=== PATIENT | male | born 1950 | race Caucasian/White ===

== ENCOUNTER → 2016-04-30 | Day surgery (SDC) | payer MEDICARE, BC ==
[~2016-04-30] MED LIST: Lactated Ringers 1,000 ML IV SCH; Propofol 200 MG/20 ML SDV IV ONE
[2016-04-30 11:30] VITALS: BP 118/82
--- NOTE | 2016-04-30 12:52 | OR ---
DATE OF OPERATION: 04/30/2016 PREOPERATIVE DIAGNOSIS: ALTERED BOWEL HABITS AND WEIGHT LOSS. POSTOPERATIVE DIAGNOSIS: ALTERED BOWEL HABITS AND WEIGHT LOSS. SURGEON: Franklin Tello MD PROCEDURE: FULL-LENGTH COLONOSCOPY. 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 COMPLICATIONS: None. SPECIMEN: None. FINDINGS: 1. Full-length colonoscopy. 2. Moderate distal sigmoid diverticulosis. RECOMMENDATIONS: Routine medical followup. INDICATIONS: The patient has been having altered bowel habits, formed or loose stools. He has been having some very mild weight loss, so we elected to proceed with colonoscopy. He has not had one in almost 10 years. DESCRIPTION OF PROCEDURE: The patient was prepped and draped, placed in the left lateral decubitus position. A lubricated Olympus colonoscope was inserted and with relative ease advanced all the way to the cecum. We were able to directly visualize the ileocecal valve and appendiceal orifice. The bowel prep was adequate. Upon withdrawal, the cecum, ascending, and transverse colon were completely benign. No signs of any lesions in the left colon including polyps, mass, ulceration, or bleeding sites. No vascular abnormalities or signs of colitis. The patient does have scattered diverticula throughout the mid sigmoid and the rectosigmoid junction, moderate in severity. No acute inflammatory changes were seen. The rectal vault appeared benign. It is very shallow rectum, I could not retroflex in it, but upon withdrawal of the scope upon direct visualization no lesions were seen. Air was suctioned as best as possible. The scope was removed without complication. MARLENY/TYRA /[id number]
== END ==
LOC: CC.SDS 09:39
PROVIDERS: ATTEND Family Medicine
DX: K57.30 Diverticulosis of large intestine without perforation or abscess without bleeding (principal); N40.0 Benign prostatic hyperplasia without lower urinary tract symptoms; I10 Essential (primary) hypertension; Z88.8 Allergy status to other drugs, medicaments and biological substances; Z79.82 Long term (current) use of aspirin; Z79.899 Other long term (current) drug therapy; Z98.890 Other specified postprocedural states; Z72.0 Tobacco use
CPT/HCPCS: 45378; J2704; J7120; 00810

== ENCOUNTER 2016-05-01 00:45 | Observation (INO) | payer MEDICARE, BC ==
[2016-05-01] MEDS ORDERED: Acetaminophen 500 MG Tab PO ONE (01:10)
--- NOTE | 2016-05-01 02:01 | EDM.PDOC ---
ED HPI GENERAL MEDICAL PROBLEM - General Chief Complaint: General Stated Complaint: abdominal pain Time Seen by Provider: 05/01/16 01:10 Source of Information: Reports: Patient History Limitations: Reports: No limitations - History of Present Illness INITIAL COMMENTS - FREE TEXT/NARRATIVE: History and physical: History of present illness: [Patient comes to the emergency room complaining of abdominal pain. he had a colonoscopy around 10:30 this morning at [facility], performed by Dr. Tello. States that the procedure well well, without complications, diverticulitis was noted on exam. Patient felt well this afternoon and gradually advanced his diet. Around 8:30 PM he had some toast and cheese. Had increased belching and flatulence at home. No bowel movements today. At 10:30 his upper abdomen began to ache which he initially rated as 8/10. Describes the pain as an aching sensation without radiation to his mid back, which is constant. he does have some low back discomfort. Has had some increased urinary urgency over the past several days. No blood in his urine or burning with urination. Overall he feels poorly. Developed a fever while in the emergency room, up to 103. Medical history includes celiac disease, diverticulitis, right shoulder separation, hypertension, prostate enlargement. Review of Systems: As per history of present illness and below otherwise all systems reviewed and negative. Past medical history: As per history of present illness and as reviewed below otherwise noncontributory. Surgical history: As per history of present illness and is reviewed below other [place] noncontributory. Social history: No reported history of drug or alcohol abuse. Family history: As per history of present illness and is reviewed below otherwise noncontributory. Physical exam: General: Well-developed well-nourished male in no acute distress. Appears mildly diaphoretic. HEENT: Atraumatic, normocephalic. Oral mucous membranes are pink and moist the tonsillar swelling erythema or exudate. neck supple, nontender, trachea midline. Lungs: Clear to auscultation, breath sounds equal bilaterally. Heart: Grade 3/5 systolic murmur, heard best over mitral valve area. S1-S2, regular rate and rhythm. No JVD. Abdomen: Increased belching. Bowel sounds are normoactive throughout. Soft, nondistended. Mildly tender with palpation over epigastrium. Otherwise nontender. No masses guarding or rebound. Negative for costovertebral tenderness. Pelvis: Stable, nontender. Genitourinary: Deferred. Rectal: Deferred. Extremities: atraumatic, negative for cords or calf pain. No cyanosis or edema. Neurovascular unremarkable. Neuro: Awake, alert, oriented. Cranial nerves II through XII unremarkable. Motor and sensory unremarkable throughout. Exam nonfocal. Diagnostics: [CT abd and pelvis, CBC, CMP, lactic acid, CRP, UA, amylase, blood cultures] Therapeutics: [ibuprofen 800mg po, Tylenol 1 gram po] Impression: [abdominal pain fever elevated LFT's] Plan: [Discussed results of CT and labs with patient. He is in agreement w/ admission for observation and continued monitoring of fever and epigastric pain. Will repeat labs this afternoon. patient is in agreement with today's plan. All questions are answered and concerns are addressed. This note should be used for observation H&P. ] Definitive disposition and diagnosis is appropriate pending reevaluation and review of above. Abdominal Pain Score (Numeric/FACES): 6 - Related Data Allergies Allergy/AdvReac Type Severity Reaction Status Date / Time simvastatin Allergy Cannot Verified 05/01/16 00:51 Remember Home Meds: Home Meds Aspirin [Ecotrin] 81 mg PO DAILY 04/28/16 [History] Fish Oil/[place]-3 Fatty Acids [Fish Oil 1,000 MG] 2,000 mg PO DAILY 04/28/16 [ History] Ibuprofen 200 mg PO Q4H PRN 04/28/16 [History] Naproxen Sodium [Aleve] 220 mg PO QID PRN 04/28/16 [History] Tamsulosin HCl [Flomax] 0.4 mg PO BEDTIME PRN 04/28/16 [History] Lisinopril 20 mg PO DAILY 05/01/16 [History] Past Medical History Musculoskeletal History: Reports: Other (see below) Other Musculoskeletal History: NECK SURGERY - Past Surgical History Musculoskeletal Surgical History: Reports: Other (see below) Other Musculoskeletal Surgeries/Procedures:: AC SEPERATION Social & Family History - Family History Family Medical History: Noncontributory - Tobacco Use Smoking Status *Q: Never Smoker Second Hand Smoke Exposure: No ED ROS GENERAL - Review of Systems Review Of Systems: ROS reveals no pertinent complaints other than HPI. ED EXAM, GENERAL - Physical Exam Exam: See Below Course - Vital Signs Last Recorded V/S: Last Vital Signs Temp 97.5 F 05/01/16 16:00 Pulse 54 L 05/01/16 16:00 Resp 2 L 05/01/16 16:00 BP 119/55 L 05/01/16 16:00 Pulse Ox 98 05/01/16 16:00 - Orders/Labs/Meds Orders: Active Orders 24 hr Category Date Time Status Patient Status [ADT] Routine ADT 05/01/16 03:17 Active Bedrest Bathroom Privileges [RC] .PRN Care 05/01/16 03:17 Active Height and Weight [RC] .PRN Care 05/01/16 03:17 Active Oxygen Therapy [RC] .PRN Care 05/01/16 03:17 Active Vital Signs [RC] 0000,0400,0800,1200,1600,2000 Care 05/01/16 03:17 Active Clear Liquid Diet [DIET] Diet 05/01/16 Breakfast Active Abdomen Pelvis w Cont [CT] Stat Exams 05/01/16 01:25 Taken CULTURE BLOOD [BC] Stat Lab 05/01/16 01:26 Ordered CULTURE BLOOD [BC] Stat Lab 05/01/16 01:26 Ordered HEPATITIS PANEL, ACUTE [REF] Stat Lab 05/01/16 14:30 Received Enoxaparin [Lovenox] Med 05/01/16 03:30 Active 30 mg SUBCUT Q24H Ibuprofen [Motrin] Med 05/01/16 03:17 Active 600 mg PO Q6H PRN Lisinopril [Prinivil] Med 05/01/16 08:00 Active 20 mg PO DAILY Ondansetron [Zofran] Med 05/01/16 03:17 Active 4 mg IV Q4H PRN Sodium Chloride 0.9% [Normal Saline] 1,000 ml Med 05/01/16 03:30 Active IV ASDIRECTED Tamsulosin [Flomax] Med 05/01/16 03:32 Active 0.4 mg PO BEDTIME PRN Resuscitation Status Routine Resus Stat 05/01/16 03:17 Ordered Medication Orders Ceftriaxone Sodium (Rocephin) 1 gm IVPUSH Q24H [facility] Last Admin: 05/01/16 03:54 Dose: 1 gm Enoxaparin Sodium (Lovenox) 30 mg SUBCUT Q24H [facility] Last Admin: 05/01/16 03:47 Dose: 30 mg Sodium Chloride (Normal Saline) 1,000 mls @ 100 mls/hr IV ASDIRECTED [facility] Last Admin: 05/01/16 13:27 Dose: 100 mls/hr Infusion: 05/01/16 13:27 Dose: 100 mls/hr Admin: 05/01/16 03:46 Dose: 100 mls/hr Ibuprofen (Motrin) 600 mg PO Q6H PRN PRN Reason: Fever Lisinopril (Prinivil) 20 mg PO DAILY [facility] Last Admin: 05/01/16 15:41 Dose: Ondansetron HCl (Zofran) 4 mg IV Q4H PRN PRN Reason: Nausea/Vomiting Tamsulosin HCl (Flomax) 0.4 mg PO BEDTIME PRN PRN Reason: bladder Labs: Laboratory Tests 05/01/16 05/01/16 05/01/16 Range/Units 01:50 01:50 01:50 WBC 11.3 H (5.0-10.0) 10^3/uL RBC 4.19 L (4.50-6.00) 10^6/uL Hgb 12.9 L (14.0-18.0) g/dL Hct 38.9 L (40.0-54.0) % MCV 92.8 (82.0-94.0) fL MCH 30.8 (27.0-32.0) pg MCHC 33.2 (33.0-38.0) g/dL RDW Coeff of Ambrosio 12.7 (11.0-15.0) % Plt Count 185 (150-400) 10^3/uL Add Manual Diff Yes Neutrophils % (Manual) 80 (35-85) % Band Neutrophils % 10 H (0-5) % Lymphocytes % (Manual) 6 L (21-55) % Monocytes % (Manual) 4 (2-12) % Absolute Neutrophils 10.17 H (1.80-7.00) 10^3/uL Lymphocytes # (Manual) 0.68 L (1.00-4.80) 10^3/uL Monocytes # (Manual) 0.45 (0.00-0.80) 10^3/uL Sodium 142 (136-145) mEq/L Potassium 4.6 (3.5-5.0) mEq/L Chloride 106 (98-106) mEq/L Carbon Dioxide 27 (21-32) mmol/L BUN 16 (7-18) mg/dL Creatinine 0.9 (0.7-1.3) mg/dL Est Cr Clr Drug Dosing TNP Estimated GFR (MDRD) > 60 (>=60) mL/min Glucose 108 H (75-99) mg/dL Lactic Acid (0.4-2.0) mmol/L Calcium 8.3 L (8.4-10.1) mg/dL Total Bilirubin 0.7 (0.0-1.0) mg/dL AST 472 H* (15-37) U/L ALT 294 H (12-78) U/L Alkaline Phosphatase 60 (46-116) U/L C-Reactive Protein 0.2 (0.2-0.8) mg/dL Total Protein 7.0 (6.4-8.2) g/dL Albumin 3.4 (3.4-5.0) g/dL Amylase 34 (25-115) U/L Urine Color Yellow (YELLOW) Urine Appearance Clear (CLEAR) Urine pH 5.5 (4.5-8.0) Ur Specific [place] 1.031 H (1.003-1.020) Urine Protein Negative (NEGATIVE) mg/dL Urine Glucose (UA) Negative (NEGATIVE) mg/dL Urine Ketones Negative (NEGATIVE) mg/dL Urine Occult Blood Negative (NEGATIVE) Urine Nitrite Negative (NEGATIVE) Urine Bilirubin Negative (NEGATIVE) Urine Urobilinogen 0.2 (0.2-1.0) EU/dL Ur Leukocyte Esterase Negative (NEGATIVE) Urine RBC 0-5 (0-5) /HPF Urine WBC 0-5 (0-5) /HPF // Range/Units 02:10 WBC (5.0-10.0) 10^3/uL RBC (4.50-6.00) 10^6/uL Hgb (14.0-18.0) g/dL Hct (40.0-54.0) % MCV (82.0-94.0) fL MCH (27.0-32.0) pg MCHC (33.0-38.0) g/dL RDW Coeff of Ambrosio (11.0-15.0) % Plt Count (150-400) 10^3/uL Add Manual Diff Neutrophils % (Manual) (35-85) % Band Neutrophils % (0-5) % Lymphocytes % (Manual) (21-55) % Monocytes % (Manual) (2-12) % Absolute Neutrophils (1.80-7.00) 10^3/uL Lymphocytes # (Manual) (1.00-4.80) 10^3/uL Monocytes # (Manual) (0.00-0.80) 10^3/uL Sodium (136-145) mEq/L Potassium (3.5-5.0) mEq/L Chloride (98-106) mEq/L Carbon Dioxide (21-32) mmol/L BUN (7-18) mg/dL Creatinine (0.7-1.3) mg/dL Est Cr Clr Drug Dosing Estimated GFR (MDRD) (>=60) mL/min Glucose (75-99) mg/dL Lactic Acid 3.2 H (0.4-2.0) mmol/L Calcium (8.4-10.1) mg/dL Total Bilirubin (0.0-1.0) mg/dL AST (15-37) U/L ALT (12-78) U/L Alkaline Phosphatase (46-116) U/L C-Reactive Protein (0.2-0.8) mg/dL Total Protein (6.4-8.2) g/dL Albumin (3.4-5.0) g/dL Amylase (25-115) U/L Urine Color (YELLOW) Urine Appearance (CLEAR) Urine pH (4.5-8.0) Ur Specific [place] (1.003-1.020) Urine Protein (NEGATIVE) mg/dL Urine Glucose (UA) (NEGATIVE) mg/dL Urine Ketones (NEGATIVE) mg/dL Urine Occult Blood (NEGATIVE) Urine Nitrite (NEGATIVE) Urine Bilirubin (NEGATIVE) Urine Urobilinogen (0.2-1.0) EU/dL Ur Leukocyte Esterase (NEGATIVE) Urine RBC (0-5) /HPF Urine WBC (0-5) /HPF Meds: Medications Generic Name Dose Route Start Last Admin Trade Name Freq PRN Reason Stop Dose Admin Ceftriaxone Sodium 1 gm 05/01/16 04:00 05/01/16 03:54 Rocephin IVPUSH 1 gm Q24H [facility] Administration Enoxaparin Sodium 30 mg 05/01/16 03:30 05/01/16 03:47 Lovenox SUBCUT 30 mg Q24H [facility] Administration Sodium Chloride 1,000 mls @ 100 mls/hr 05/01/16 03:30 05/01/16 13:27 Normal Saline IV 100 mls/hr ASDIRECTED [facility] Administration Ibuprofen 600 mg 05/01/16 03:17 Motrin PO Q6H PRN Fever Lisinopril 20 mg 05/01/16 08:00 05/01/16 15:41 Prinivil PO Not Given DAILY [facility] Ondansetron HCl 4 mg 05/01/16 03:17 Zofran IV Q4H PRN Nausea/Vomiting Tamsulosin HCl 0.4 mg 05/01/16 03:32 Flomax PO BEDTIME PRN bladder Discontinued Medications Generic Name Dose Route Start Last Admin Trade Name Freq PRN Reason Stop Dose Admin Acetaminophen 1,000 mg 05/01/16 01:10 05/01/16 01:58 Tylenol Extra Strength PO 05/01/16 01:11 1,000 mg ONETIME ONE Administration Ibuprofen 800 mg 05/01/16 02:29 05/01/16 02:34 Motrin PO 05/01/16 02:30 800 mg ONETIME ONE Administration Departure - Departure Time of Disposition: 03:30 Disposition: DC/Tfer W/I Hosp To Swing 61 Condition: fair Clinical Impression: Epigastric abdominal pain, Elevated LFTs Fever Qualifiers: Fever type: unspecified Qualified Code(s): R50.9 - Fever, unspecified - My Orders Last 24 Hours: My Active Orders 05/01/16 01:25 Abdomen Pelvis w Cont [CT] Stat 05/01/16 01:26 CULTURE BLOOD [BC] Stat CULTURE BLOOD [BC] Stat 05/01/16 03:17 Patient Status [ADT] Routine Bedrest Bathroom Privileges [RC] .PRN Height and Weight [RC] .PRN Oxygen Therapy [RC] .PRN Vital Signs [RC] 0000,0400,0800,1200,1600,2000 Ibuprofen [Motrin] 600 mg PO Q6H PRN Ondansetron [Zofran] 4 mg IV Q4H PRN Resuscitation Status Routine 05/01/16 03:30 Enoxaparin [Lovenox] 30 mg SUBCUT Q24H Sodium Chloride 0.9% [Normal Saline] 1,000 ml IV ASDIRECTED 05/01/16 03:32 Tamsulosin [Flomax] 0.4 mg PO BEDTIME PRN 05/01/16 08:00 Lisinopril [Prinivil] 20 mg PO DAILY 05/01/16 14:30 HEPATITIS PANEL, ACUTE [REF] Stat 05/01/16 Breakfast Clear Liquid Diet [DIET] - Assessment/Plan Last 24 Hours: My Active Orders 05/01/16 01:25 Abdomen Pelvis w Cont [CT] Stat 05/01/16 01:26 CULTURE BLOOD [BC] Stat CULTURE BLOOD [BC] Stat 05/01/16 03:17 Patient Status [ADT] Routine Bedrest Bathroom Privileges [RC] .PRN Height and Weight [RC] .PRN Oxygen Therapy [RC] .PRN Vital Signs [RC] 0000,0400,0800,1200,1600,2000 Ibuprofen [Motrin] 600 mg PO Q6H PRN Ondansetron [Zofran] 4 mg IV Q4H PRN Resuscitation Status Routine 05/01/16 03:30 Enoxaparin [Lovenox] 30 mg SUBCUT Q24H Sodium Chloride 0.9% [Normal Saline] 1,000 ml IV ASDIRECTED 05/01/16 03:32 Tamsulosin [Flomax] 0.4 mg PO BEDTIME PRN 05/01/16 08:00 Lisinopril [Prinivil] 20 mg PO DAILY 05/01/16 14:30 HEPATITIS PANEL, ACUTE [REF] Stat 05/01/16 Breakfast Clear Liquid Diet [DIET]
[2016-05-01] MEDS ORDERED: Ibuprofen 200 MG Tab PO ONE (02:29)
[2016-05-01 02:40] LABS: CHLORIDE,CL 106 mEq/L (98-106); SODIUM,NA 142 mEq/L (136-145)
[2016-05-01] MEDS ORDERED: Ondansetron 4 MG/2 ML SDV IV PRN (03:17)
[2016-05-01] MEDS ORDERED: Ibuprofen 200 MG Tab PO PRN (03:17)
[2016-05-01] MEDS ORDERED: Tamsulosin 0.4 MG Cap.ER PO PRN (03:32)
[2016-05-01] MEDS: Sodium Chloride 0.9% 1,000 ML IV SCH ×2 (03:46→13:27)
[2016-05-01] MEDS: Enoxaparin 30 MG/0.3 ML Syringe SUBCUT SCH (03:47)
[2016-05-01] MEDS: cefTRIAXone 1 GM Vial IVPUSH SCH (03:54)
[2016-05-01 14:51] LABS: CHLORIDE,CL 109 mEq/L (98-106); SODIUM,NA 143 mEq/L (136-145)
[2016-05-01] MEDS: Lisinopril 20 MG Tab PO SCH (15:41)
--- NOTE | 2016-05-01 22:38 | PCM.PN ---
- General Info Date of Service: 05/01/16 Admission Dx/Problem (Free Text): Patient was reevaluated around 4 PM today. He has remained pain-free since he presented to the emergency room. Liver enzymes remain elevated and ALT has actually increased. He has no complaints of pain or nausea. Will advance to regular diet (gluten free) for supper and see how he does. Will recheck labs in the a.m. If stable, will consider discharge to home. Pt is in agreement w/ plan. - Patient Data Vitals - most recent: Last Vital Signs Temp 98.5 F 05/01/16 20:00 Pulse 52 L 05/01/16 20:00 Resp 16 05/01/16 20:00 BP 103/58 L 05/01/16 20:00 Pulse Ox 96 05/01/16 20:00 Weight - most recent: 134 lb 11.2 oz I&O - last 24 hours: Intake & Output 05/01/16 05/01/16 05/01/16 06:59 14:59 22:59 Intake Total 968 Balance 968 Lab Results last 24 hrs: Laboratory Results - last 24 hr 05/01/16 05/01/16 05/01/16 Range/Units 14:20 14:30 14:30 WBC 6.5 (5.0-10.0) 10^3/uL RBC 3.70 L (4.50-6.00) 10^6/uL Hgb 11.4 L (14.0-18.0) g/dL Hct 34.7 L (40.0-54.0) % MCV 93.8 (82.0-94.0) fL MCH 30.8 (27.0-32.0) pg MCHC 32.9 L (33.0-38.0) g/dL RDW Coeff of Ambrosio 12.7 (11.0-15.0) % Plt Count 169 (150-400) 10^3/uL Neut % (Auto) 70.9 (35-85) % Lymph % (Auto) 11.8 (10-55) % [place] % (Auto) 14.3 (0-16) % Eos % (Auto) 2.8 (0-5) % Baso % (Auto) 0.2 (0-3) % Neut # (Auto) 4.58 (1.80-7.00) 10^3/uL Lymph # (Auto) 0.76 L (1.00-4.80) 10^3/uL [place] # (Auto) 0.92 H (0.00-0.80) 10^3/uL Eos # (Auto) 0.18 (0.00-0.45) 10^3/uL Baso # (Auto) 0.01 10^3/uL Sodium 143 (136-145) mEq/L Potassium 3.9 (3.5-5.0) mEq/L Chloride 109 H (98-106) mEq/L Carbon Dioxide 27 (21-32) mmol/L BUN 14 (7-18) mg/dL Creatinine 0.8 (0.7-1.3) mg/dL Est Cr Clr Drug Dosing 77.43 mL/min Estimated GFR (MDRD) > 60 (>=60) mL/min Glucose 85 (75-99) mg/dL Lactic Acid 0.9 (0.4-2.0) mmol/L Calcium 7.4 L (8.4-10.1) mg/dL Total Bilirubin 0.5 (0.0-1.0) mg/dL AST 238 H (15-37) U/L ALT 394 H* (12-78) U/L Alkaline Phosphatase 46 (46-116) U/L C-Reactive Protein 3.2 H (0.2-0.8) mg/dL Total Protein 5.7 L (6.4-8.2) g/dL Albumin 2.7 L (3.4-5.0) g/dL Med Orders - Current: Current Medications Ceftriaxone Sodium (Rocephin) 1 gm IVPUSH Q[facility]H [facility] Last Admin: 05/01/16 03:54 Dose: 1 gm Enoxaparin Sodium (Lovenox) 30 mg SUBCUT Q24H [facility] Last Admin: 05/01/16 03:47 Dose: 30 mg Sodium Chloride (Normal Saline) 1,000 mls @ 100 mls/hr IV ASDIRECTED [facility] Last Admin: 05/01/16 13:27 Dose: 100 mls/hr Ibuprofen (Motrin) 600 mg PO Q6H PRN PRN Reason: Fever Lisinopril (Prinivil) 20 mg PO DAILY [facility] Last Admin: 05/01/16 15:41 Dose: Not Given Ondansetron HCl (Zofran) 4 mg IV Q4H PRN PRN Reason: Nausea/Vomiting Tamsulosin HCl (Flomax) 0.4 mg PO BEDTIME PRN PRN Reason: bladder Discontinued Medications Acetaminophen (Tylenol Extra Strength) 1,000 mg PO ONETIME ONE Stop: 05/01/16 01:11 Last Admin: 05/01/16 01:58 Dose: 1,000 mg Ibuprofen (Motrin) 800 mg PO ONETIME ONE Stop: 05/01/16 02:30 Last Admin: 05/01/16 02:34 Dose: 800 mg - Problem List Review Problem List Initiated/Reviewed/Updated: Yes - My Orders Last 24 Hours: My Active Orders 05/01/16 04:00 cefTRIAXone [Rocephin] 1 gm IVPUSH Q24H 05/01/16 Dinner Regular Diet [DIET]
[2016-05-02] MEDS: Enoxaparin 30 MG/0.3 ML Syringe SUBCUT SCH (03:49)
[2016-05-02] MEDS: cefTRIAXone 1 GM Vial IVPUSH SCH (03:50)
[2016-05-02] MEDS: Sodium Chloride 0.9% 1,000 ML IV SCH (03:51)
[2016-05-02 07:56] LABS: CHLORIDE,CL 110 mEq/L (98-106); SODIUM,NA 144 mEq/L (136-145)
[2016-05-02] MEDS: Lisinopril 20 MG Tab PO SCH (09:09)
[2016-05-02 11:58] VITALS: BP 122/61
--- NOTE | 2016-05-02 13:55 | PCM.DCSUM1 ---
Discharge Summary - Hospital Course Free Text/Narrative:: Patient was admitted through the ER during the speech therapist early intervention hours of May 01 epigastric abdominal pain, fever, elevated liver enzymes. His abd pain and fever have resolved entirely, and he is tolerating regular diet. Is ambulating without difficulty. Had a normal bowel movement this morning. Is urinating without difficulty. - Discharge Data Discharge Date: 05/02/16 Discharge Disposition: Home, Self-Care 01 Condition: Good - Discharge Diagnosis/Problem(s) (1) Elevated LFTs SNOMED Code(s): 488946019 ICD Code: R94.5 - ABNORMAL RESULTS OF LIVER FUNCTION STUDIES Status: Acute Current Visit: Yes (2) Epigastric abdominal pain SNOMED Code(s): 64092095 ICD Code: R10.13 - EPIGASTRIC PAIN Status: Resolved Current Visit: Yes (3) Fever SNOMED Code(s): 408602119 ICD Code: R50.9 - FEVER, UNSPECIFIED Status: Resolved Current Visit: Yes Qualifiers: Fever type: unspecified Qualified Code(s): R50.9 - Fever, unspecified - Patient Summary/Data Recommended Follow-up Testing/Procedures: Follow up with Dr. Tello at [facility] tomorrow a.m. - Patient Instructions Diet: Regular Diet as Tolerated Activity: As Tolerated Notify Provider of: Fever, Increased Pain, Nausea and/or Vomiting - Discharge Plan Home Medications: Home Meds Aspirin [Ecotrin] 81 mg PO DAILY 04/28/16 [History] Fish Oil/[place]-3 Fatty Acids [Fish Oil 1,000 MG] 2,000 mg PO DAILY 04/28/16 [ History] Ibuprofen 200 mg PO Q4H PRN 04/28/16 [History] Naproxen Sodium [Aleve] 220 mg PO QID PRN 04/28/16 [History] Tamsulosin HCl [Flomax] 0.4 mg PO BEDTIME PRN 04/28/16 [History] Lisinopril 20 mg PO DAILY 05/01/16 [History] Forms: ED Department Discharge Referrals: Franklin Tello MD [Primary Care Provider] - - Discharge Summary/Plan Comment DC Time >30 min.: No Discharge Summary/Plan Comment: Patient will be discharged home this afternoon. He is to followup with Dr. tello tomorrow morning in the [facility]. - General Info Date of Service: 05/02/16 Admission Dx/Problem (Free Text: 1. abdominal pain 2. fever 3. elevated LFT's - Review of Systems General: Reports: No Symptoms HEENT: Reports: no symptoms Pulmonary: Reports: no symptoms Cardiovascular: Reports: No Symptoms Gastrointestinal: Reports: No symptoms Musculoskeletal: Reports: no symptoms Neurological: Reports: No Symptoms Psychiatric: Reports: no symptoms - Patient Data Vitals - Most Recent: Last Vital Signs Temp 98.0 F 05/02/16 11:57 Pulse 54 L 05/02/16 11:57 Resp 20 05/02/16 11:57 BP 122/61 05/02/16 11:57 Pulse Ox 96 05/02/16 11:57 Weight - Most Recent: 134 lb 11.2 oz I&O - Last 24 hours: Intake & Output 05/01/16 05/02/16 05/02/16 22:59 06:59 14:59 Intake Total 1000 Balance 1000 Lab Results - Last 24 hrs: Laboratory Results - last 24 hr 05/01/16 05/01/16 05/01/16 Range/Units 14:20 14:30 14:30 WBC 6.5 (5.0-10.0) 10^3/uL RBC 3.70 L (4.50-6.00) 10^6/uL Hgb 11.4 L (14.0-18.0) g/dL Hct 34.7 L (40.0-54.0) % MCV 93.8 (82.0-94.0) fL MCH 30.8 (27.0-32.0) pg MCHC 32.9 L (33.0-38.0) g/dL RDW Coeff of Ambros[place] 12.7 (11.0-15.0) % Plt Count 169 (150-400) 10^3/uL Neut % (Auto) 70.9 (35-85) % Lymph % (Auto) 11.8 (10-55) % [place] % (Auto) 14.3 (0-16) % Eos % (Auto) 2.8 (0-5) % Baso % (Auto) 0.2 (0-3) % Neut # (Auto) 4.58 (1.80-7.00) 10^3/uL Lymph # (Auto) 0.76 L (1.00-4.80) 10^3/uL [place] # (Auto) 0.92 H (0.00-0.80) 10^3/uL Eos # (Auto) 0.18 (0.00-0.45) 10^3/uL Baso # (Auto) 0.01 10^3/uL Sodium 143 (136-145) mEq/L Potassium 3.9 (3.5-5.0) mEq/L Chloride 109 H (98-106) mEq/L Carbon Dioxide 27 (21-32) mmol/L BUN 14 (7-18) mg/dL Creatinine 0.8 (0.7-1.3) mg/dL Est Cr Clr Drug Dosing 77.43 mL/min Estimated GFR (MDRD) > 60 (>=60) mL/min Glucose 85 (75-99) mg/dL Lactic Acid 0.9 (0.4-2.0) mmol/L Calcium 7.4 L (8.4-10.1) mg/dL Total Bilirubin 0.5 (0.0-1.0) mg/dL AST 238 H (15-37) U/L ALT 394 H* (12-78) U/L Alkaline Phosphatase 46 (46-116) U/L C-Reactive Protein 3.2 H (0.2-0.8) mg/dL Total Protein 5.7 L (6.4-8.2) g/dL Albumin 2.7 L (3.4-5.0) g/dL 05/02/16 05/02/16 05/02/16 Range/Units 06:55 06:55 06:55 WBC 4.8 L (5.0-10.0) 10^3/uL RBC 3.73 L (4.50-6.00) 10^6/uL Hgb 11.6 L (14.0-18.0) g/dL Hct 35.5 L (40.0-54.0) % MCV 95.2 H (82.0-94.0) fL MCH 31.1 (27.0-32.0) pg MCHC 32.7 L (33.0-38.0) g/dL RDW Coeff of [place]ros[place] 12.9 (11.0-15.0) % Plt Count 171 (150-400) 10^3/uL Neut % (Auto) 52.5 (35-85) % Lymph % (Auto) 24.4 (10-55) % [place] % (Auto) 14.7 (0-16) % Eos % (Auto) 7.6 H (0-5) % Baso % (Auto) 0.8 (0-3) % Neut # (Auto) 2.54 (1.80-7.00) 10^3/uL Lymph # (Auto) 1.18 (1.00-4.80) 10^3/uL [place] # (Auto) 0.71 (0.00-0.80) 10^3/uL Eos # (Auto) 0.37 (0.00-0.45) 10^3/uL Baso # (Auto) 0.04 10^3/uL Sodium 144 (136-145) mEq/L Potassium 4.4 (3.5-5.0) mEq/L Chloride 110 H (98-106) mEq/L Carbon Dioxide 27 (21-32) mmol/L BUN 13 (7-18) mg/dL Creatinine 0.9 (0.7-1.3) mg/dL Est Cr Clr Drug Dosing 68.83 mL/min Estimated GFR (MDRD) > 60 (>=60) mL/min Glucose 97 (75-99) mg/dL Lactic Acid 0.5 (0.4-2.0) mmol/L Calcium 7.5 L (8.4-10.1) mg/dL Total Bilirubin 0.3 (0.0-1.0) mg/dL AST 106 H (15-37) U/L ALT 293 H (12-78) U/L Alkaline Phosphatase 43 L (46-116) U/L C-Reactive Protein 3.2 H (0.2-0.8) mg/dL Total Protein 5.7 L (6.4-8.2) g/dL Albumin 2.6 L (3.4-5.0) g/dL Med Orders - Current: Current Medications Ceftriaxone Sodium (Rocephin) 1 gm IVPUSH Q24H [facility] Last Admin: 05/02/16 03:50 Dose: 1 gm Enoxaparin Sodium (Lovenox) 30 mg SUBCUT Q24H [facility] Last Admin: 05/02/16 03:49 Dose: 30 mg Sodium Chloride (Normal Saline) 1,000 mls @ 100 mls/hr IV ASDIRECTED [facility] Last Admin: 05/02/16 03:51 Dose: 100 mls/hr Ibuprofen (Motrin) 600 mg PO Q6H PRN PRN Reason: Fever Lisinopril (Prinivil) 20 mg PO DAILY [facility] Last Admin: 05/02/16 09:09 Dose: Not Given Ondansetron HCl (Zofran) 4 mg IV Q4H PRN PRN Reason: Nausea/Vomiting Tamsulosin HCl (Flomax) 0.4 mg PO BEDTIME PRN PRN Reason: bladder Discontinued Medications Acetaminophen (Tylenol Extra Strength) 1,000 mg PO ONETIME ONE Stop: 05/01/16 01:11 Last Admin: 05/01/16 01:58 Dose: 1,000 mg Ibuprofen (Motrin) 800 mg PO ONETIME ONE Stop: 05/01/16 02:30 Last Admin: 05/01/16 02:34 Dose: 800 mg - Exam General: Reports: alert, oriented, cooperative Neck: Reports: supple Lungs: Reports: Clear to auscultation, Normal respiratory effort Cardiovascular: Reports: Regular Rate, Regular Rhythm Abdomen: Reports: bowel sounds present, soft, no tenderness, no distension Skin: Reports: warm, dry, intact Neurological: Reports: no new focal deficit Psy/Mental Status: Reports: alert, normal affect, normal mood *Q Meaningful Use (DIS) - VTE *Q VTE Criteria *Q: - Stroke *Q Stroke Criteria *Q: - AMI *Q AMI Criteria *Q:
== END 2016-05-02 17:50 | disposition home or self-care (01) ==
LOC: CC.ED 00:45 → CC.MS 03:17 → UNDOADMOB 03:25 → CC.MS 03:25 → UNDODISOB 05-02 17:50
PROVIDERS: ADMIT Nurse Practitioner Family; ATTEND Family Medicine
DX: G89.18 Other acute postprocedural pain (principal); R94.5 Abnormal results of liver function studies; R10.13 Epigastric pain; Z79.82 Long term (current) use of aspirin; Z79.899 Other long term (current) drug therapy
CPT/HCPCS: 36415; 74177; 80053; 80074; 81001; 82150; 83605; 85025; 86140; 96361; 96372; 96374; 96376; 99217; 99220; 99285; A9270; G0378; J0696; J1650; J7030; Q9967

== ENCOUNTER → 2020-01-18 | Day surgery (SDC) | payer MEDICARE, BC ==
[~2020-01-18] MED LIST changes: +Ketamine 200 MG/20 ML MDV ONE; -Lactated Ringers 1,000 ML IV SCH; +Midazolam 1 MG/ML 2 ML SDV ONE; -Propofol 200 MG/20 ML SDV IV ONE; +fentaNYL 100 MCG/2 ML SDV ONE
[2020-01-18] MEDS: Lactated Ringers 1,000 ML IV ONE (08:11)
[2020-01-18 09:00] VITALS: BP 113/82
[2020-01-18 09:23] VITALS: PULSE 66
--- NOTE | 2020-01-18 11:54 | OR ---
DATE OF OPERATION: 01/18/2020 PREOPERATIVE DIAGNOSIS: 1. RECTAL PAIN. 2. ALTERED BOWEL HABITS. POSTOPERATIVE DIAGNOSIS: 1. RECTAL PAIN. 2. ALTERED BOWEL HABITS. SURGEON: Franklin Tello MD PROCEDURE: FULL-LENGTH COLONOSCOPY WITH FORCEPS POLYP REMOVAL X1. ANESTHESIA: Conscious sedation. COMPLICATIONS: None. SPECIMEN: Small hyperplastic polyp in rectal vault, 2 to 3 mm. FINDINGS: 1. Full-length colonoscopy. 2. Moderate sigmoid diverticulosis. 3. Hyperplastic polyp, rectal vault. 4. Small perianal fissure. RECOMMENDATIONS: Routine colonoscopy per ACS guidelines in 5 years pending path report. The patient to consider surgical consultation for rectal fissure. INDICATIONS: Mr. Lee has been having ongoing issues with rectal pain and some occasional diarrhea. We elected to proceed with diagnostic colonoscopy. DESCRIPTION OF PROCEDURE: The patient was prepped and draped, placed in the left lateral decubitus position. A lubricated Olympus colonoscope was inserted and easily advanced to the cecum. We were able to directly visualize the ileocecal valve and the appendiceal orifice. The bowel prep was excellent. Upon withdrawal of the scope, the right transverse and descending colons appeared completely benign and unremarkable. The patient had moderate diverticular disease throughout the entire sigmoid colon without any inflammatory changes. No other specific lesions, mucosal abnormalities, or vascular abnormalities were seen here. In the rectal vault, the patient had a small 2 to 3 mm hyperplastic-appearing polyp removed in its entirety with a cold forceps. Retroflexion showed some perianal hemorrhoid disease with 1 small little fissure present. Air was then suctioned from the colon and the scope removed without complication. MARLENY/TYRA /[id number]
== END ==
LOC: CC.SDS 07:54
PROVIDERS: ATTEND Family Medicine
DX: D12.8 Benign neoplasm of rectum (principal); K57.30 Diverticulosis of large intestine without perforation or abscess without bleeding; K60.2 Anal fissure, unspecified; K64.8 Other hemorrhoids; Z01.812 Encounter for preprocedural laboratory examination; Z20.828 Contact with and (suspected) exposure to other viral communicable diseases; Z88.8 Allergy status to other drugs, medicaments and biological substances; Z79.899 Other long term (current) drug therapy
CPT/HCPCS: 00811; J2250; J3010; J7120

== ENCOUNTER 2020-08-02 18:27 | Emergency (ER) | payer MEDICARE, BC ==
--- NOTE | 2020-08-02 18:45 | EDM.PDOC ---
ED HPI GENERAL MEDICAL PROBLEM - General Chief Complaint: Abdominal Pain Stated Complaint: ABDOMINAL PAIN Time Seen by Provider: 08/02/20 18:30 Source of Information: Reports: Patient History Limitations: Reports: No Limitations - History of Present Illness INITIAL COMMENTS - FREE TEXT/NARRATIVE: Bentia is a 69 year old male who presents to ER with complaints of a 3 day history of left lower quadrant pain. States first 2 days it was a nagging discomfort but today has become more severe. Started to run low grade fevers today. Denies nausea or vomiting. Was able to eat some today but limited appetite. Abdomen is very tender when he touches his left lower quadrant. Relates has a history of diverticulitis, has been treated with antibiotics before and pain is very similar. Had normal BM this am but admits it had been 2 days since prior BM and that is very unusual for him. No blood in his stools. Had a colonoscopy 2 months ago due to rectal burning but no new evidence of any acute changes. Prior colonoscopies have noted diverticulosis. Ate popcorns and peanuts within the last week but typically doesn't cause a concern for him. No chest pain, shortness of breath. Onset: Gradual Duration: Day(s): Location: Reports: Abdomen Quality: Reports: Ache, Sharp Severity: Moderate Improves with: Reports: Rest Worsens with: Reports: Movement Associated Symptoms: Reports: Fever/Chills, Loss of Appetite. Denies: Confusion, Chest Pain, Cough, Headaches, Nausea/Vomiting, Shortness of Breath Left Lower Abdomen Pain Score (Numeric/FACES): 7 - Related Data Allergies Allergy/AdvReac Type Severity Reaction Status Date / Time propofol Allergy Liver Verified 08/02/20 18:31 Problems simvastatin Allergy Cannot Verified 08/02/20 18:31 Remember Home Meds: Home Meds Fish Oil/[place]-3 Fatty Acids [Fish Oil 1,000 MG] 2 tab PO DAILY 04/28/16 [History] Ibuprofen 200 mg PO Q4H PRN 04/28/16 [History] Naproxen Sodium [Aleve] 220 mg PO QID PRN 04/28/16 [History] Tamsulosin HCl [Flomax] 2 tab PO BEDTIME 04/28/16 [History] Lisinopril 20 mg PO DAILY 05/01/16 [History] Past Medical History Cardiovascular History: Reports: High Cholesterol, Hypertension Musculoskeletal History: Reports: Other (See Below) Other Musculoskeletal History: NECK SURGERY - Past Surgical History Musculoskeletal Surgical History: Reports: Other (See Below) Social & Family History - Family History Family Medical History: No Pertinent Family History - Tobacco Use Tobacco Use Status *Q: Unknown Ever Used Tobacco - Caffeine Use Caffeine Use: Reports: Coffee ED ROS GENERAL - Review of Systems Review Of Systems: See Below Constitutional: Reports: Fever, Chills, Malaise, Fatigue, Decreased Appetite. Denies: Weakness HEENT: Reports: No Symptoms Respiratory: Denies: Shortness of Breath Cardiovascular: Denies: Chest Pain, Edema, Lightheadedness Endocrine: Denies: Fatigue GI/Abdominal: Reports: Decreased Appetite. Denies: Abdominal Pain, Constipation, Diarrhea, Nausea, Vomiting : Reports: No Symptoms Musculoskeletal: Reports: No Symptoms Skin: Reports: No Symptoms Neurological: Reports: No Symptoms ED EXAM, GI/ABD - Physical Exam Exam: See Below Exam Limited By: No Limitations General Appearance: Alert, WD/WN, No Apparent Distress Ears: Normal External Exam, Normal TMs Nose: Normal Inspection, Normal Mucosa, No Blood Throat/Mouth: Normal Inspection, Normal Oropharynx Head: Normocephalic Neck: Normal Inspection, Supple, Non-Tender Respiratory/Chest: No Respiratory Distress, Lungs Clear, Normal Breath Sounds Cardiovascular: Regular Rate, Rhythm GI/Abdominal Exam: Normal Bowel Sounds, Soft, Tender (LLQ) Extremities: Normal Inspection, No Pedal Edema Neurological: Alert, Oriented Skin Exam: Warm, Dry Course - Vital Signs Last Recorded V/S: Last Vital Signs Temp 212.9 F H 08/02/20 19:48 Pulse 67 08/02/20 19:10 Resp 16 08/02/20 19:10 BP 140/78 08/02/20 19:10 Pulse Ox 97 08/02/20 19:10 - Orders/Labs/Meds Orders: Active Orders 24 hr Category Date Time Status Abdomen Pelvis w Cont [CT] Stat Exams 08/02/20 18:52 Taken Levofloxacin/Dextrose 5%-Water [Levaquin in D5W 500 MG/ Med 08/02/20 20:11 Ordered 100 ML] 500 mg Premix Bag 1 bag IV ONETIME Sodium Chloride 0.9% [Normal Saline] 1,000 ml Med 08/02/20 19:15 Active IV ASDIRECTED Medication Orders Sodium Chloride (Normal Saline) 1,000 mls @ 250 mls/hr IV ASDIRECTED [facility] Last Admin: 08/02/20 19:38 Dose: 250 mls/hr Documented by: JUD Levofloxacin/Dextrose 500 mg/ (Premix) 100 mls @ 100 mls/hr IV ONETIME ONE Stop: 08/02/20 21:10 Labs: Laboratory Tests 08/02/20 08/02/20 08/02/20 Range/Units 18:41 18:45 18:45 WBC 10.9 (4.0-11.0) 10^3/uL RBC 4.78 (4.50-6.00) x10^6/uL Hgb 14.5 (14.0-18.0) g/dL Hct 44.2 (42.0-52.0) % MCV 92.5 (83.0-97.0) fL MCH 30.3 (27.0-32.0) pg MCHC 32.8 (32.0-36.0) g/dL RDW Coeff of Ambrosio 12.6 (11.0-15.0) % Plt Count 241 (150-400) 10^3/uL Immature Gran % (Auto) 0.2 (0.0-4.9) % Neut % (Auto) 75.1 H (41-71) % Lymph % (Auto) 12.3 L (24-44) % [place] % (Auto) 10.0 (0-10) % Eos % (Auto) 2.2 (0-6) % Baso % (Auto) 0.2 (0-1) % Neut # (Auto) 8.20 H (1.80-8.00) x10^3/uL Lymph # (Auto) 1.34 (0.60-5.00) 10^3/uL [place] # (Auto) 1.09 (0.00-1.50) 10^3/uL Eos # (Auto) 0.24 (0.00-1.50) 10^3/uL Baso # (Auto) 0.02 (0.00-0.50) 10^3/uL Immature Gran # (Auto) 0.02 (0.00-0.49) 10^3/uL Sodium 143 (136-145) mEq/L Potassium 3.9 D (3.5-5.0) mEq/L Chloride 102 (98-106) mEq/L Carbon Dioxide 28 (21-32) mmol/L BUN 13 (7-18) mg/dL Creatinine 1.1 (0.7-1.3) mg/dL Est Cr Clr Drug Dosing 53.58 mL/min Estimated GFR (MDRD) > 60 (>=60) mL/min Glucose 99 (75-99) mg/dL Calcium 8.3 L (8.4-10.1) mg/dL Total Bilirubin 0.5 (0.0-1.0) mg/dL AST 13 L (15-37) U/L ALT 17 (12-78) U/L Alkaline Phosphatase 68 (46-116) U/L C-Reactive Protein 4.2 H (0.2-0.8) mg/dL Total Protein 7.9 (6.4-8.2) g/dL Albumin 3.9 (3.4-5.0) g/dL Urine Color Yellow (YELLOW) Urine Appearance Clear (CLEAR) Urine pH 5.5 (4.5-8.0) Ur Specific [place] >= 1.030 H (1.003-1.020) Urine Protein Negative (NEGATIVE) mg/dL Urine Glucose (UA) Negative (NEGATIVE) mg/dL Urine Ketones Negative (NEGATIVE) mg/dL Urine Occult Blood Negative (NEGATIVE) Urine Nitrite Negative (NEGATIVE) Urine Bilirubin Negative (NEGATIVE) Urine Urobilinogen 0.2 (0.2-1.0) EU/dL Ur Leukocyte Esterase Negative (NEGATIVE) Meds: Medications Generic Name Dose Route Start Last Admin Trade Name Freq PRN Reason Stop Dose Admin Sodium Chloride 1,000 mls @ 250 mls/hr 08/02/20 19:15 08/02/20 19:38 Normal Saline IV 250 mls/hr ASDIRECTED [facility] Administration Levofloxacin/Dextrose 500 mg/ 100 mls @ 100 mls/hr 08/02/20 20:11 Premix IV 08/02/20 21:10 ONETIME ONE Discontinued Medications Generic Name Dose Route Start Last Admin Trade Name Freq PRN Reason Stop Dose Admin Acetaminophen 1,000 mg 08/02/20 19:40 08/02/20 19:48 Acetaminophen 500 Mg Tab PO 08/02/20 19:41 1,000 mg ONETIME ONE Administration Iopamidol 100 ml 08/02/20 19:06 08/02/20 19:39 Iopamidol 755 Mg/Ml 100 Ml Bottle IVPUSH 08/02/20 19:07 100 ml ONETIME ONE Administration Levofloxacin 1 packet 08/02/20 20:12 Take Home: Levofloxacin 500 Mg Tab, 1 Tab Pack PO 08/02/20 20:13 ONETIME ONE Metronidazole 1 packet 08/02/20 20:12 Take Home: Metronidazole 500 Mg Tab, 4 Tab Pack PO 08/02/20 20:13 ONETIME ONE - Re-Assessments/Exams Free Text/Narrative Re-Assessment/Exam: 08/02/20 1930-labs unremarkable. Due to fever and persistent pain, will proceed with CT scan of abdomen 2014-CT scan shows inflammatory changes in descending bowel. Will treat for diverticulitis, first dose of IV Levaquin tonight. Giving normal saline due to dehydration, specific gravity greater than 1.030. Will discharge home on oral Levaquin and Flagyl. Departure - Departure Time of Disposition: 20:16 Disposition: Home, Self-Care 01 Condition: Good Clinical Impression: Acute diverticulitis - Discharge Information *PRESCRIPTION DRUG MONITORING PROGRAM REVIEWED*: No *COPY OF PRESCRIPTION DRUG MONITORING REPORT IN PATIENT LEO: No Instructions: Diverticulitis Forms: ED Department Discharge Additional Instructions: 1. Push fluids 2. [place] diet 3. Levaquin 500 mg daily for 10 days 4. Flagyl 500 mg three times a day for 7 days 5. Follow up if increasing pain, fevers, concerns Sepsis Event Note (ED) - Focused Exam Vital Signs: Vital Signs Temp Temp Pulse Resp BP Pulse Ox 08/02/20 19:48 212.9 F H 08/02/20 19:10 100.5 F 67 16 140/78 97 08/02/20 18:30 100.5 F 77 16 168/87 H 97 - My Orders Last 24 Hours: My Active Orders 08/02/20 18:52 Abdomen Pelvis w Cont [CT] Stat 08/02/20 19:15 Sodium Chloride 0.9% [Normal Saline] 1,000 ml IV ASDIRECTED 08/02/20 20:11 Levofloxacin/Dextrose 5%-Water [Levaquin in D5W 500 MG/100 ML] 500 mg Premix Bag 1 bag IV ONETIME - Assessment/Plan Last 24 Hours: My Active Orders 08/02/20 18:52 Abdomen Pelvis w Cont [CT] Stat 08/02/20 19:15 Sodium Chloride 0.9% [Normal Saline] 1,000 ml IV ASDIRECTED 08/02/20 20:11 Levofloxacin/Dextrose 5%-Water [Levaquin in D5W 500 MG/100 ML] 500 mg Premix Bag 1 bag IV ONETIME
[2020-08-02 19:00] LABS: CHLORIDE,CL 102 mEq/L (98-106); SODIUM,NA 143 mEq/L (136-145)
[2020-08-02 19:13] VITALS: BP 140/78; PULSE 67
[2020-08-02] MEDS: Sodium Chloride 0.9% 1,000 ML IV SCH (19:38)
[2020-08-02] MEDS: Iopamidol 755 Mg/ML 100 ML Bottle IVPUSH ONE (19:39)
[2020-08-02] MEDS: Acetaminophen 500 MG Tab PO ONE (19:48)
[2020-08-02] MEDS ORDERED: metroNIDAZOLE 500 MG Tab ONE (20:05)
[2020-08-02] MEDS ORDERED: Levofloxacin 500 MG Tab ONE (20:05)
[2020-08-02] MEDS: Levofloxacin/Dextrose 5%-Water 500 MG in Premix Bag 1 BAG IV ONE (20:20)
[2020-08-02] MEDS: Take Home: Levofloxacin 500 MG Tab, 1 Tab Pack PO ONE (21:26)
[2020-08-02] MEDS: Take Home: metroNIDAZOLE 500 MG Tab, 4 Tab Pack PO ONE (21:26)
== END 2020-08-02 21:30 | disposition home or self-care (01) ==
LOC: CC.ED 18:27
DX: K57.32 Diverticulitis of large intestine without perforation or abscess without bleeding (principal); E86.0 Dehydration; E78.00 Pure hypercholesterolemia, unspecified; I10 Essential (primary) hypertension; Z79.899 Other long term (current) drug therapy; Z88.4 Allergy status to anesthetic agent; Z88.8 Allergy status to other drugs, medicaments and biological substances
CPT/HCPCS: 36415; 74177; 80053; 81003; 85025; 86140; 96365; 99284; 99284-25; A9270-GY; J1956; J7030; Q9967

== ENCOUNTER → 2021-06-04 | Day surgery (SDC) | payer MEDICARE, BC ==
[~2021-06-04] MED LIST changes: +Lactated Ringers 1,000 ML IV SCH; +Lidocaine 1% with EPINEPHrine 1:100,000 20 ML MDV INJECT ONE; +Ondansetron 4 MG/2 ML SDV ONE
[2021-06-04 16:36] VITALS: BP 110/59; PULSE 53
== END ==
LOC: CC.SDS 12:41
PROVIDERS: ATTEND Surgery
DX: K62.89 Other specified diseases of anus and rectum (principal); N40.0 Benign prostatic hyperplasia without lower urinary tract symptoms; I10 Essential (primary) hypertension; Z88.8 Allergy status to other drugs, medicaments and biological substances; Z88.4 Allergy status to anesthetic agent; Z79.899 Other long term (current) drug therapy; Z98.890 Other specified postprocedural states
CPT/HCPCS: J2250; J2405; J3010; J7120

== ENCOUNTER 2023-06-29 14:10 | Inpatient (IN) | payer MEDICARE, BC ==
[2023-06-29 14:58] LABS: BASOPHILS ABSOLUTE AUTO 0.01 10^3/uL (0.00-0.50); BASOPHILS PERCENT AUTO 0.1 % (0-1); EOSINOPHILS ABSOLUTE AUTO 0.01 10^3/uL (0.00-1.50); EOSINOPHILS PERCENT AUTO 0.1 % (0-6); HEMATOCRIT 42.5 % (42.0-52.0); HEMOGLOBIN 14.1 g/dL (14.0-18.0); IMMATURE GRAN ABSOLUTE AUTO 0.01 10^3/uL (0.00-0.49); IMMATURE GRAN PERCENT AUTO 0.1 % (0.0-4.9); LYMPHOCYTES PERCENT AUTO 6.7 % (24-44); MEAN CORPUSCULAR HEMOGLOBIN 30.4 pg (27.0-32.0); MEAN CORPUSCULAR HGB CONC 33.2 g/dL (32.0-36.0); MEAN CORPUSCULAR VOLUME 91.6 fL (83.0-97.0); MONOCYTES ABSOLUTE AUTO 1.07 10^3/uL (0.00-1.50); MONOCYTES PERCENT AUTO 10.2 % (0-10); NEUTROPHILS PERCENT AUTO 82.8 % (41-71); PLATELET COUNT,PLT 193 10^3/uL (150-400); RED BLOOD CELL COUNT 4.64 x10^6/uL (4.50-6.00); WHITE BLOOD CELL COUNT,WBC 10.5 10^3/uL (4.0-11.0)
[2023-06-29 15:29] LABS: ALANINE AMINOTRANSFERASE,ALT 20 U/L (12-78); ALBUMIN 3.7 g/dL (3.4-5.0); ALKALINE PHOSPHATASE 62 U/L (46-116); ASPARTATE AMNIOTRANSFERASE,AST 15 U/L (15-37); BILIRUBIN TOTAL 0.6 mg/dL (0.0-1.0); BLOOD UREA NITROGEN,BUN 15 mg/dL (7-18); C-REACTIVE PROTEIN 3.27 mg/dL (<=0.50); CALCIUM 8.5 mg/dL (8.4-10.1); CARBON DIOXIDE,CO2 26 mmol/L (21-32); CHLORIDE,CL 97 mEq/L (98-106); CREATININE 0.9 mg/dL (0.7-1.3); GLUCOSE RANDOM 121 mg/dL (75-99); POTASSIUM,K 4.3 mEq/L (3.5-5.0); PROTEIN TOTAL,TP 7.8 g/dL (6.4-8.2); SODIUM,NA 134 mEq/L (136-145)
[2023-06-29 15:32] LABS: ESTIMATED GFR 90 mL/min (>=60)
[2023-06-29] MEDS ORDERED: Ondansetron 4 MG Tab.DIS PO PRN (15:50)
[2023-06-29] MEDS ORDERED: Docusate Sodium 100 MG Cap PO PRN (15:50)
[2023-06-29] MEDS ORDERED: Sodium Chloride 0.9% 10 ML Syringe FLUSH PRN (15:50)
[2023-06-29] MEDS ORDERED: Ondansetron 4 MG/2 ML SDV IV PRN (15:50)
[2023-06-29 16:22] LABS: LACTIC ACID 2.8 mmol/L (0.4-2.0)
[2023-06-29] MEDS: cefTRIAXone 1 GM Vial IVPUSH SCH (16:23)
[2023-06-29] MEDS: Sodium Chloride 0.9% 1,000 ML IV SCH (16:24)
[2023-06-29] MEDS: Azithromycin 500 MG in Sodium Chloride 0.9% 250 ML IV SCH (16:24)
[2023-06-29] MEDS: Sodium Chloride 0.9% 1,000 ML IV ONE (17:28)
[2023-06-29] MEDS: Albuterol/Ipratropium 3.0-0.5 MG/3 ML Neb Soln NEB PRN (18:08)
[2023-06-29] MEDS: Tamsulosin 0.4 MG Cap.ER PO SCH (19:05)
[2023-06-29] MEDS: Acetaminophen 325 MG Tab PO PRN (19:18)
[2023-06-30] MEDS: Enoxaparin 40 MG/0.4 ML Syringe SUBCUT SCH (07:34)
[2023-06-30] MEDS: Lisinopril 10 MG Tab PO SCH (07:35)
[2023-06-30] MEDS: Hydrochlorothiazide 12.5 MG Cap PO SCH (07:35)
[2023-06-30] MEDS: Cyanocobalamin (Vitamin B12) 1,000 MCG Tab PO SCH (07:35)
[2023-06-30] MEDS: Pantoprazole 40 MG Tab.CR PO SCH (07:35)
[2023-06-30] MEDS: Finasteride 5 MG Tab PO SCH (07:36)
[2023-06-30 07:44] LABS: BASOPHILS ABSOLUTE AUTO 0.01 10^3/uL (0.00-0.50); BASOPHILS PERCENT AUTO 0.2 % (0-1); EOSINOPHILS ABSOLUTE AUTO 0.17 10^3/uL (0.00-1.50); EOSINOPHILS PERCENT AUTO 3.7 % (0-6); HEMATOCRIT 40.1 % (42.0-52.0); MEAN CORPUSCULAR HEMOGLOBIN 30.4 pg (27.0-32.0); MEAN CORPUSCULAR HGB CONC 32.4 g/dL (32.0-36.0); MEAN CORPUSCULAR VOLUME 93.7 fL (83.0-97.0); MONOCYTES ABSOLUTE AUTO 0.58 10^3/uL (0.00-1.50); MONOCYTES PERCENT AUTO 12.5 % (0-10); NEUTROPHILS ABSOLUTE AUTO 2.58 x10^3/uL (1.80-8.00); NEUTROPHILS PERCENT AUTO 55.6 % (41-71); PLATELET COUNT,PLT 184 10^3/uL (150-400); RED BLOOD CELL COUNT 4.28 x10^6/uL (4.50-6.00); WHITE BLOOD CELL COUNT,WBC 4.6 10^3/uL (4.0-11.0)
[2023-06-30 07:57] LABS: C-REACTIVE PROTEIN 4.73 mg/dL (<=0.50); CREATININE 0.9 mg/dL (0.7-1.3); EST CRCL DRUG DOSING (CG) 58.3 mL/min; POTASSIUM,K 4.7 mEq/L (3.5-5.0)
[2023-06-30] MEDS: methylPREDNISolone Sodium Succinate 40 MG/1 ML SDV IVPUSH SCH (10:32)
[2023-06-30] MEDS: Hypromellose 0.3% Ophth Soln 15 ML Bottle EYEBOTH PRN (10:40)
[2023-06-30] MEDS: guaiFENesin 200 MG Tab PO SCH (13:40)
[2023-06-30] MEDS: Melatonin 3 MG Tab PO PRN (23:18)
[2023-07-01 07:33] LABS: BASOPHILS ABSOLUTE AUTO 0.01 10^3/uL (0.00-0.50); BASOPHILS PERCENT AUTO 0.1 % (0-1); EOSINOPHILS ABSOLUTE AUTO 0.02 10^3/uL (0.00-1.50); EOSINOPHILS PERCENT AUTO 0.2 % (0-6); HEMATOCRIT 33.3 % (42.0-52.0); HEMOGLOBIN 11.1 g/dL (14.0-18.0); IMMATURE GRAN ABSOLUTE AUTO 0.02 10^3/uL (0.00-0.49); IMMATURE GRAN PERCENT AUTO 0.2 % (0.0-4.9); LYMPHOCYTES ABSOLUTE AUTO 1.47 10^3/uL (0.60-5.00); LYMPHOCYTES PERCENT AUTO 15.3 % (24-44); MEAN CORPUSCULAR HEMOGLOBIN 30.9 pg (27.0-32.0); MEAN CORPUSCULAR HGB CONC 33.3 g/dL (32.0-36.0); MEAN CORPUSCULAR VOLUME 92.8 fL (83.0-97.0); MONOCYTES ABSOLUTE AUTO 0.89 10^3/uL (0.00-1.50); MONOCYTES PERCENT AUTO 9.3 % (0-10); NEUTROPHILS ABSOLUTE AUTO 7.19 x10^3/uL (1.80-8.00); NEUTROPHILS PERCENT AUTO 74.9 % (41-71); PLATELET COUNT,PLT 174 10^3/uL (150-400); RED BLOOD CELL COUNT 3.59 x10^6/uL (4.50-6.00); WHITE BLOOD CELL COUNT,WBC 9.6 10^3/uL (4.0-11.0)
[2023-07-01 07:35] VITALS: BP 105/56
[2023-07-01 07:42] LABS: C-REACTIVE PROTEIN 1.94 mg/dL (<=0.50); CALCIUM 7.6 mg/dL (8.4-10.1); CREATININE 0.7 mg/dL (0.7-1.3); EST CRCL DRUG DOSING (CG) 74.96 mL/min; POTASSIUM,K 4.2 mEq/L (3.5-5.0)
[2023-07-01 09:11] VITALS: PULSE 63
== END 2023-07-01 10:20 | disposition home or self-care (01) | DRG 194 ==
LOC: CC.FCMC 14:10 → UNDOADMIN 15:33 → CC.MS 15:33
PROVIDERS: ADMIT Nurse Practitioner Family; ATTEND Nurse Practitioner Family
DX: J18.9 Pneumonia, unspecified organism (principal); E87.20 Acidosis, unspecified; J02.9 Acute pharyngitis, unspecified; I10 Essential (primary) hypertension; E78.00 Pure hypercholesterolemia, unspecified; G89.29 Other chronic pain; M54.50 Low back pain, unspecified; Z88.4 Allergy status to anesthetic agent; Z88.8 Allergy status to other drugs, medicaments and biological substances; Z79.899 Other long term (current) drug therapy; Z86.16 Personal history of COVID-19
CPT/HCPCS: 36415; 71046; 80048; 80053; 83605; 84145; 85025; 86140; 87040; 87070; 87205; 87651-QW; 87804; 94640; 97161-GP; A9270-GY; J0456; J0696; J1650; J2920; J7030; J7050; J7620-GY; U0002

== ENCOUNTER 2024-05-25 08:42 | Day surgery (SDC) | payer MEDICARE, BC ==
[2024-05-25] MEDS: Lactated Ringers 1,000 ML IV SCH (09:06)
[2024-05-25] MEDS ORDERED: Midazolam 1 MG/ML 2 ML SDV ONE ×2 (09:20)
[2024-05-25] MEDS ORDERED: NACL IV ONE (09:20)
[2024-05-25] MEDS ORDERED: Ketamine 200 MG/20 ML MDV ONE (09:20)
[2024-05-25] MEDS ORDERED: Flumazenil 0.1 MG/ML 10 ML MDV ONE (09:20)
[2024-05-25] MEDS ORDERED: Glycopyrrolate 0.2 MG/ML SDV ONE (09:20)
[2024-05-25] MEDS ORDERED: fentaNYL 50 MCG/ML SDV ONE ×2 (09:20)
[2024-05-25] MEDS ORDERED: DEXMEDETOMIDINE IV ONE (09:20)
[2024-05-25 13:24] VITALS: BP 91/57; PULSE 54
== END 2024-05-25 11:23 | disposition home or self-care (01) ==
LOC: CC.SDS 08:42
PROVIDERS: ATTEND Family Medicine
DX: Z12.11 Encounter for screening for malignant neoplasm of colon (principal); K57.30 Diverticulosis of large intestine without perforation or abscess without bleeding; Z86.0100 Personal history of colon polyps, unspecified; K21.9 Gastro-esophageal reflux disease without esophagitis; I10 Essential (primary) hypertension; N40.0 Benign prostatic hyperplasia without lower urinary tract symptoms; Z79.899 Other long term (current) drug therapy; Z88.8 Allergy status to other drugs, medicaments and biological substances
CPT/HCPCS: 00811; 99100; G0105; J1596; J2250; J3010; J3490; J7120